=== PATIENT | female | born 1990 | race Caucasian/White ===

== ENCOUNTER 2017-01-13 16:28 | Emergency (ER) | payer BC ==
--- NOTE | 2017-01-13 16:35 | Emergency Department Record ---
History of Present Illness - General Source: Patient Mode of Arrival: Ambulatory Limitations: No limitations - History of Present Illness Initial Comments: pt states she was watching tv when she developed nausea and thought she might have to go to the bathroom. she then states she somehow ended up on the floor and she is unsure if passed out or not. she then had palpitations and chest pain which have eased up now <Miguelina Rogers Jere - Last Filed: 01/13/17 18:01> <Pantera Barbour - Last Filed: 01/13/17 19:27> - General Chief Complaint: Chest Pain Stated Complaint: CHEST PAIN Time Seen by Provider: 01/13/17 16:35 - Related Data Previous Rx's Medication Instructions Recorded Lorazepam [Ativan] 1 mg PO Q12HR #6 tablet 09/29/16 Allergies Allergy/AdvReac Type Severity Reaction Status Date / Time No Known Drug Allergies Allergy Verified 01/13/17 16:36 Review of Systems Reviewed: No additional complaints except as noted below Constitutional: Reports: As per HPI. Denies: Chills, Fever, Malaise, Night sweats, Weakness, Weight change Eyes: Reports: As per HPI. Denies: Eye discharge, Eye pain, Photophobia, Vision change ENT: Reports: As per HPI. Denies: Congestion, Dental pain, Ear pain, Epistaxis , Hearing loss, Throat pain Respiratory: Reports: As per HPI. Denies: Cough, Dyspnea, Hemoptysis, Stridor, Wheezes Cardiovascular: Reports: As per HPI. Denies: Arrhythmia, Chest pain, Dyspnea on exertion, Edema, Murmurs, Orthopnea, Palpitations, Paroxysmal nocturnal dyspnea, Rheumatic Fever, Syncope Endocrine: Reports: As per HPI. Denies: Fatigue, Heat or cold intolerance, Polydipsia, Polyuria Gastrointestinal: Reports: As per HPI. Denies: Abdominal pain, Constipation, Diarrhea, Hematemesis, Hematochezia, Melena, Nausea, Vomiting Genitourinary: Reports: As per HPI. Denies: Abnormal menses, Discharge, Dyspareunia, Dysuria, Frequency, Hematuria, Incontinence, Retention, Urgency Musculoskeletal: Reports: As per HPI. Denies: Arthralgia, Back pain, Gout, Joint swelling, Myalgia, Neck pain Skin: Reports: As per HPI. Denies: Bruising, Change in color, Change in hair/ nails, Lesions, Pruritus, Rash Neurological: Reports: As per HPI. Denies: Abnormal gait, Confusion, Headache, Numbness, Paresthesias, Seizure, Tingling, Tremors, Vertigo, Weakness Psychiatric: Reports: As per HPI. Denies: Anxiety, Auditory hallucinations, Depression, Homicidal thoughts, Suicidal thoughts, Visual hallucinations Hematological/Lymphatic: Reports: As per HPI. Denies: Anemia, Blood Clots, Easy bleeding, Easy bruising, Swollen glands <KenMiguelina L - Last Filed: 01/13/17 18:01> Past Medical History - SOCIAL HISTORY Smoking Status: Never smoker Drug Use: None - RESPIRATORY Hx Respiratory Disorders: No - CARDIOVASCULAR Hx Cardio Disorders: No - NEURO Hx Neuro Disorders: No - GI Hx GI Disorders: No - Hx Genitourinary Disorders: No - ENDOCRINE Hx Endocrine Disorders: No - MUSCULOSKELETAL Hx Musculoskeletal Disorders: No - PSYCH Hx Psych Problems: Yes Hx Anxiety: Yes - HEMATOLOGY/ONCOLOGY Hx Hematology/Oncology Disorders: No <Miguelina Rogers - Last Filed: 01/13/17 18:01> Physical Exam - General General Appearance: Alert, Oriented x3, Cooperative, Mild distress - Head Head exam: Normal inspection - Eye Eye exam: Normal appearance, PERRL, EOMI Pupils: Normal accommodation - ENT ENT exam: Normal exam, Mucous membranes moist, Normal external ear exam, Normal orophraynx, TM's normal bilaterally Ear exam: Normal external inspection. negative: External canal tenderness Nasal Exam: Normal inspection. negative: Discharge, Sinus tenderness Mouth exam: Normal external inspection, Tongue normal Teeth exam: Normal inspection. negative: Dental caries Throat exam: Normal inspection. negative: Tonsillar erythema, Tonsillar exudate - Neck Neck exam: Normal inspection, Full ROM. negative: Tenderness - Respiratory Respiratory exam: Normal lung sounds bilaterally. negative: Respiratory distress - Cardiovascular Cardiovascular Exam: Normal rhythm, Normal heart sounds, Tachycardia - GI/Abdominal GI/Abdominal exam: Soft, Normal bowel sounds. negative: Tenderness - Rectal Rectal exam: Deferred - exam: Deferred - Extremities Extremities exam: Normal inspection, Full ROM, Normal capillary refill. negative: Tenderness - Back Back exam: Reports: Normal inspection, Full ROM. 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 ] Respiratory 22 16 Rate Blood Pressure 112/68 Blood Pressure 124/75 [Left Arm] Pulse Ox 100 100 <Pantera Barbour - Last Filed: 01/13/17 19:27> Medical Decision Making - Lab Data Result diagrams: 01/13/17 16:40 01/13/17 16:40 <Miguelina Rogers - Last Filed: 01/13/17 18:01> - Lab Data Result diagrams: 01/13/17 16:40 01/13/17 16:40 Lab Results 01/13/17 01/13/17 01/13/17 Range/Units 16:40 16:40 16:40 WBC 8.7 (4.2-12.2) K/uL RBC 4.77 (3.80-5.40) M/uL Hgb 13.1 (11.6-16.0) gm/dl Hct 40.3 (35.0-47.0) % MCV 84.5 (81-97) fl MCH 27.5 (27-33) pg MCHC 32.5 (32-36) g/dl RDW 13.1 (11.5-14.5) % Plt Count 297 (130-400) K/uL MPV 11.3 H (7.4-10.4) fl Gran % 47.2 (47-80) % Lymphocytes % 41.1 (16-45) % Monocytes % 7.7 (0-9) % Eosinophils % 3.2 (0-6) % Basophils % 0.8 (0-6) % D-Dimer 0.38 (0-0.59) mg/L FEU Sodium 143 (136-145) mmol/L Potassium 3.3 L (3.5-5.1) mmol/L Chloride 112 H (98-107) mmol/L Carbon Dioxide 21.3 L (22-30) mmol/L Anion Gap 9.7 (7-16) BUN 14 (7-17) mg/dL Creatinine 0.7 (0.52-1.04) mg/dL Estimated GFR > 60 ml/min Random Glucose 92 (70-110) mg/dL Calcium 9.0 (8.5-10.1) mg/dL Creatine Kinase 84 (30-135) U/L CK-MB (CK-2) 0.4 (0-6) ug/L Troponin I < 0.012 (0.00-0.034) ng/mL TSH (0.465-4.68) uIU/ml Urine Color Urine Appearance Urine pH (5.0-8.0) Ur Specific [place] (1.002-1.030) Urine Protein (NEGATIVE) Urine Glucose (UA) (NEGATIVE) Urine Ketones (NEGATIVE) Urine Blood (NEGATIVE) Urine Nitrite (NEGATIVE) Urine Bilirubin (NEGATIVE) Urine Urobilinogen (0.20 - 1.00) E.U./dL Ur Leukocyte Esterase (NEGATIVE) Urine RBC (NONE SEEN) Urine WBC (0-2/hpf) Ur Epithelial Cells (FEW) Urine Bacteria Urine HCG, Qual (NEGATIVE) Urine Opiates Screen Ur Oxycodone Screen Urine Methadone Screen Ur Propoxyphene Screen Ur Barbituates Screen Ur Tricyclics Screen Ur Phencyclidine Scrn Ur Amphetamine Screen U Methamphetamines Scrn U Benzodiazepines Scrn Urine Cocaine Screen Urine Cannabis Screen 01/13/17 01/13/17 01/13/17 Range/Units 16:40 17:33 17:33 WBC (4.2-12.2) K/uL RBC (3.80-5.40) M/uL Hgb (11.6-16.0) gm/dl Hct (35.0-47.0) % MCV (81-97) fl MCH (27-33) pg MCHC (32-36) g/dl RDW (11.5-14.5) % Plt Count (130-400) K/uL MPV (7.4-10.4) fl Gran % (47-80) % Lymphocytes % (16-45) % Monocytes % (0-9) % Eosinophils % (0-6) % Basophils % (0-6) % D-Dimer (0-0.59) mg/L FEU Sodium (136-145) mmol/L Potassium (3.5-5.1) mmol/L Chloride (98-107) mmol/L Carbon Dioxide (22-30) mmol/L Anion Gap (7-16) BUN (7-17) mg/dL Creatinine (0.52-1.04) mg/dL Estimated GFR ml/min Random Glucose (70-110) mg/dL Calcium (8.5-10.1) mg/dL Creatine Kinase (30-135) U/L CK-MB (CK-2) (0-6) ug/L Troponin I (0.00-0.034) ng/mL TSH 1.46 (0.465-4.68) uIU/ml Urine Color Yellow Urine Appearance Clear Urine pH 6.0 (5.0-8.0) Ur Specific [place] 1.015 (1.002-1.030) Urine Protein Negative (NEGATIVE) Urine Glucose (UA) Negative (NEGATIVE) Urine Ketones Negative (NEGATIVE) Urine Blood Trace-i (NEGATIVE) Urine Nitrite Negative (NEGATIVE) Urine Bilirubin Negative (NEGATIVE) Urine Urobilinogen 0.2 (0.20 - 1.00) E.U./dL Ur Leukocyte Esterase Negative (NEGATIVE) Urine RBC 0 - 2 (NONE SEEN) Urine WBC 0 - 2 (0-2/hpf) Ur Epithelial Cells 0 - 2 (FEW) Urine Bacteria Few Urine HCG, Qual Negative (NEGATIVE) Urine Opiates Screen Not detected Ur Oxycodone Screen Not detected Urine Methadone Screen Not detected Ur Propoxyphene Screen Not detected Ur Barbituates Screen Not detected Ur Tricyclics Screen Not detected Ur Phencyclidine Scrn Not detected Ur Amphetamine Screen Not detected U Methamphetamines Scrn Not detected U Benzodiazepines Scrn Not detected Urine Cocaine Screen Not detected Urine Cannabis Screen Not detected <Pantera Barbour - Last Filed: 01/13/17 19:27> Disposition Disposition: Discharge <Miguelina Rogers - Last Filed: 01/13/17 18:01> <Pantera Barbour - Last Filed: 01/13/17 19:27> Clinical Impression: Palpitations Disposition: Home, Self-Care Condition: (1) Good Instructions: Chest Pain (ED), Heart Palpitations (ED) Additional Instructions: follow up with embedded systems developer on sunday. return sooner if worse. Forms: Patient Portal Access
[2017-01-13 17:07] LABS: BASO % 0.8 % (0-6); EOS % 3.2 % (0-6); GRAN % 47.2 % (47-80); HEMATOCRIT 40.3 % (35.0-47.0); HEMOGLOBIN 13.1 gm/dl (11.6-16.0); LYMPH % 41.1 % (16-45); MEAN CELL VOLUME 84.5 fl (81-97); MEAN CORPUSCULAR HEMOGLOBIN 27.5 pg (27-33); MEAN CORPUSCULAR HGB CONC 32.5 g/dl (32-36); MEAN PLATELET VOLUME 11.3 fl (7.4-10.4); MONO % 7.7 % (0-9); PLATELET COUNT 297 K/uL (130-400); RED BLOOD COUNT 4.77 M/uL (3.80-5.40); RED CELL DISTRIBUTION WIDTH 13.1 % (11.5-14.5); WHITE BLOOD COUNT W/O DIFF 8.7 K/uL (4.2-12.2)
[2017-01-13 17:18] LABS: ANION GAP 9.7 (7-16); BLOOD UREA NITROGEN 14 mg/dL (7-17); CARBON DIOXIDE 21.3 mmol/L (22-30); CREATINE PHOSPHOKINASE 84 U/L (30-135); CREATININE 0.7 mg/dL (0.52-1.04); EST GLOMERULAR FILTRATION RATE > 60 ml/min; GLUCOSE,RANDOM 92 mg/dL (70-110)
[2017-01-13 17:30] LABS: CKMB 0.4 ug/L (0-6)
[2017-01-13 17:31] LABS: TROPONIN I < 0.012 ng/mL (0.00-0.034)
[2017-01-13 17:43] LABS: URINE APPEARANCE CLEAR; URINE BILIRUBIN NEGATIVE (NEGATIVE); URINE BLOOD TRACE-I (NEGATIVE); URINE COLOR YELLOW; URINE GLUCOSE (UA) NEGATIVE (NEGATIVE); URINE KETONE NEGATIVE (NEGATIVE); URINE LEUKOCYTE ESTERASE NEGATIVE (NEGATIVE); URINE NITRITE NEGATIVE (NEGATIVE); URINE PROTEIN NEGATIVE (NEGATIVE); URINE UROBILINOGEN 0.2 E.U./dL (0.20 - 1.00)
[2017-01-13 17:45] LABS: HCG,QUALITATIVE URINE NEGATIVE (NEGATIVE)
[2017-01-13 17:47] LABS: AMPHETAMINE SCREEN URINE NOT DETECTED; BARBITURATE SCREEN URINE NOT DETECTED; BENZODIAZEPINE SCREEN URINE NOT DETECTED; COCAINE SCREEN URINE NOT DETECTED; METHADONE SCREEN URINE NOT DETECTED; OPIATE SCREEN URINE NOT DETECTED; PHENCYCLIDINE SCREEN URINE NOT DETECTED; PROPOXYPHENE SCREEN URINE NOT DETECTED; THC SCREEN URINE NOT DETECTED; TRICYCLIC ANTIDEPRESSANT SCRN NOT DETECTED
[2017-01-13 17:48] LABS: METHAMPHETAMINE SCREEN NOT DETECTED; OXYCODONE SCREEN URINE NOT DETECTED
[2017-01-13 17:52] LABS: URINE BACTERIA FEW; URINE EPITHELIAL CELLS 0 - 2 (FEW); URINE RBC 0 - 2 (NONE SEEN); URINE WBC 0 - 2 (0-2/hpf)
[2017-01-13] MEDS ORDERED: PROMETHAZINE HCL 25 MG/ML VIAL IVP ONE (17:53)
[2017-01-13] MEDS ORDERED: LORAZEPAM 0.5 MG TABLET PO ONE (19:26)
--- NOTE | 2017-01-13 19:34 | Emergency Department Record ---
History of Present Illness - General Chief Complaint: Chest Pain Stated Complaint: CHEST PAIN Time Seen by Provider: 01/13/17 16:35 Source: Patient Mode of Arrival: Ambulatory Limitations: No limitations - History of Present Illness Onset/Timin -: Month(s) Pain Radiation: None Consistency: Constant Anginal Symptoms: Nausea Treatments Prior to Arrival: None - Related Data Previous Rx's Medication Instructions Recorded Lorazepam [Ativan] 1 mg PO Q12HR #6 tablet 09/29/16 Allergies Allergy/AdvReac Type Severity Reaction Status Date / Time No Known Drug Allergies Allergy Verified 01/13/17 16:36 Travel Screening - Travel/Exposure Within Last 30 Days Have you traveled within the last 30 days?: No Review of Systems Constitutional: Reports: As per HPI. Denies: Chills, Fever, Malaise, Night sweats, Weakness, Weight change Eyes: Reports: As per HPI. Denies: Eye discharge, Eye pain, Photophobia, Vision change ENT: Reports: As per HPI. Denies: Congestion, Dental pain, Ear pain, Epistaxis , Hearing loss, Throat pain Respiratory: Reports: As per HPI. Denies: Cough, Dyspnea, Hemoptysis, Stridor, Wheezes Cardiovascular: Reports: As per HPI. Denies: Arrhythmia, Chest pain, Dyspnea on exertion, Edema, Murmurs, Orthopnea, Palpitations, Paroxysmal nocturnal dyspnea, Rheumatic Fever, Syncope Endocrine: Reports: As per HPI. Denies: Fatigue, Heat or cold intolerance, Polydipsia, Polyuria Gastrointestinal: Reports: As per HPI. Denies: Abdominal pain, Constipation, Diarrhea, Hematemesis, Hematochezia, Melena, Nausea, Vomiting Genitourinary: Reports: As per HPI. Denies: Abnormal menses, Discharge, Dyspareunia, Dysuria, Frequency, Hematuria, Incontinence, Retention, Urgency Musculoskeletal: Reports: As per HPI. Denies: Arthralgia, Back pain, Gout, Joint swelling, Myalgia, Neck pain Skin: Reports: As per HPI. Denies: Bruising, Change in color, Change in hair/ nails, Lesions, Pruritus, Rash Neurological: Reports: As per HPI. Denies: Abnormal gait, Confusion, Headache, Numbness, Paresthesias, Seizure, Tingling, Tremors, Vertigo, Weakness Psychiatric: Reports: As per HPI. Denies: Anxiety, Auditory hallucinations, Depression, Homicidal thoughts, Suicidal thoughts, Visual hallucinations Hematological/Lymphatic: Reports: As per HPI. Denies: Anemia, Blood Clots, Easy bleeding, Easy bruising, Swollen glands Past Medical History - SOCIAL HISTORY Smoking Status: Never smoker Drug Use: None - RESPIRATORY Hx Respiratory Disorders: No - CARDIOVASCULAR Hx Cardio Disorders: No - NEURO Hx Neuro Disorders: No - GI Hx GI Disorders: No - Hx Genitourinary Disorders: No - ENDOCRINE Hx Endocrine Disorders: No - MUSCULOSKELETAL Hx Musculoskeletal Disorders: No - PSYCH Hx Psych Problems: Yes Hx Anxiety: Yes - HEMATOLOGY/ONCOLOGY Hx Hematology/Oncology Disorders: No Family Medical History Any Significant Family History?: Yes Family Hx Comment (NOT TO BE USED IN PLACE OF ITEMS BELOW): Mother- heart valve problems Physical Exam - General Limitations: No limitations Course Vital Signs 01/13/17 01/13/17 16:30 17:54 Temperature 98.4 F Pulse Rate 104 H Pulse Rate [ 98 H Steel Buffer ] Respiratory 22 16 Rate Blood Pressure 112/68 Blood Pressure 124/75 [Left Arm] Pulse Ox 100 100 - Reevaluation(s) Reevaluation #1: I was called to see the patient due to the patient and family being unhappy with their care. She is very frustrated about not receiving a dx of why this continues to happen to her. I did explain to her that her evaluation up to this point was normal. After reviewing the chart I did offer to admit the patient to the hospital overnight for further monitoring. I also discussed the case with Laura ([employer] WORK [employer]CT INSTALLER) and she agreed to the admission. After doing those things the patient refused the admission. I explained to her that by NOT staying in the hospital she could go home and have a possible arrythmia, syncope, suffer significant trauma due to fall, become disabled and could even . The patient understands the risks and accepts the risks. She presently has proper decision making capacity and was instructed to see her PCP next week and to return to the ER for any problems. 01/13/17 19:31 Medical Decision Making - Data Complexity MDM Data: X-Ray Ordered and/or Reviewed - Lab Data Result diagrams: 01/13/17 16:40 01/13/17 16:40 Lab Results 01/13/17 01/13/17 01/13/17 Range/Units 16:40 16:40 16:40 WBC 8.7 (4.2-12.2) K/uL RBC 4.77 (3.80-5.40) M/uL Hgb 13.1 (11.6-16.0) gm/dl Hct 40.3 (35.0-47.0) % MCV 84.5 (81-97) fl MCH 27.5 (27-33) pg MCHC 32.5 (32-36) g/dl RDW 13.1 (11.5-14.5) % Plt Count 297 (130-400) K/uL MPV 11.3 H (7.4-10.4) fl Gran % 47.2 (47-80) % Lymphocytes % 41.1 (16-45) % Monocytes % 7.7 (0-9) % Eosinophils % 3.2 (0-6) % Basophils % 0.8 (0-6) % D-Dimer 0.38 (0-0.59) mg/L FEU Sodium 143 (136-145) mmol/L Potassium 3.3 L (3.5-5.1) mmol/L Chloride 112 H (98-107) mmol/L Carbon Dioxide 21.3 L (22-30) mmol/L Anion Gap 9.7 (7-16) BUN 14 (7-17) mg/dL Creatinine 0.7 (0.52-1.04) mg/dL Estimated GFR > 60 ml/min Random Glucose 92 (70-110) mg/dL Calcium 9.0 (8.5-10.1) mg/dL Creatine Kinase 84 (30-135) U/L CK-MB (CK-2) 0.4 (0-6) ug/L Troponin I < 0.012 (0.00-0.034) ng/mL TSH (0.465-4.68) uIU/ml Urine Color Urine Appearance Urine pH (5.0-8.0) Ur Specific [place] (1.002-1.030) Urine Protein (NEGATIVE) Urine Glucose (UA) (NEGATIVE) Urine Ketones (NEGATIVE) Urine Blood (NEGATIVE) Urine Nitrite (NEGATIVE) Urine Bilirubin (NEGATIVE) Urine Urobilinogen (0.20 - 1.00) E.U./dL Ur Leukocyte Esterase (NEGATIVE) Urine RBC (NONE SEEN) Urine WBC (0-2/hpf) Ur Epithelial Cells (FEW) Urine Bacteria Urine HCG, Qual (NEGATIVE) Urine Opiates Screen Ur Oxycodone Screen Urine Methadone Screen Ur Propoxyphene Screen Ur Barbituates Screen Ur Tricyclics Screen Ur Phencyclidine Scrn Ur Amphetamine Screen U Methamphetamines Scrn U Benzodiazepines Scrn Urine Cocaine Screen Urine Cannabis Screen 01/13/17 01/13/17 01/13/17 Range/Units 16:40 17:33 17:33 WBC (4.2-12.2) K/uL RBC (3.80-5.40) M/uL Hgb (11.6-16.0) gm/dl Hct (35.0-47.0) % MCV (81-97) fl MCH (27-33) pg MCHC (32-36) g/dl RDW (11.5-14.5) % Plt Count (130-400) K/uL MPV (7.4-10.4) fl Gran % (47-80) % Lymphocytes % (16-45) % Monocytes % (0-9) % Eosinophils % (0-6) % Basophils % (0-6) % D-Dimer (0-0.59) mg/L FEU Sodium (136-145) mmol/L Potassium (3.5-5.1) mmol/L Chloride (98-107) mmol/L Carbon Dioxide (22-30) mmol/L Anion Gap (7-16) BUN (7-17) mg/dL Creatinine (0.52-1.04) mg/dL Estimated GFR ml/min Random Glucose (70-110) mg/dL Calcium (8.5-10.1) mg/dL Creatine Kinase (30-135) U/L CK-MB (CK-2) (0-6) ug/L Troponin I (0.00-0.034) ng/mL TSH 1.46 (0.465-4.68) uIU/ml Urine Color Yellow Urine Appearance Clear Urine pH 6.0 (5.0-8.0) Ur Specific [place] 1.015 (1.002-1.030) Urine Protein Negative (NEGATIVE) Urine Glucose (UA) Negative (NEGATIVE) Urine Ketones Negative (NEGATIVE) Urine Blood Trace-i (NEGATIVE) Urine Nitrite Negative (NEGATIVE) Urine Bilirubin Negative (NEGATIVE) Urine Urobilinogen 0.2 (0.20 - 1.00) E.U./dL Ur Leukocyte Esterase Negative (NEGATIVE) Urine RBC 0 - 2 (NONE SEEN) Urine WBC 0 - 2 (0-2/hpf) Ur Epithelial Cells 0 - 2 (FEW) Urine Bacteria Few Urine HCG, Qual Negative (NEGATIVE) Urine Opiates Screen Not detected Ur Oxycodone Screen Not detected Urine Methadone Screen Not detected Ur Propoxyphene Screen Not detected Ur Barbituates Screen Not detected Ur Tricyclics Screen Not detected Ur Phencyclidine Scrn Not detected Ur Amphetamine Screen Not detected U Methamphetamines Scrn Not detected U Benzodiazepines Scrn Not detected Urine Cocaine Screen Not detected Urine Cannabis Screen Not detected - Radiology Data Radiology results: Report reviewed (CXR: Neg.) Disposition Clinical Impression: Palpitations Disposition: Home, Self-Care Condition: (1) Good Instructions: Chest Pain (ED), Heart Palpitations (ED) Additional Instructions: follow up with managed care provider on sunday. return sooner if worse. Forms: Patient Portal Access
--- NOTE | 2017-01-14 11:24 | RADIOLOGY REPORT ---
EXAM: CHEST 2 VIEWS HISTORY: DIFFICULTY IN BREATHING. TECHNIQUE: Frontal and lateral views of the chest were performed. FINDINGS: Heart size is normal. Lung almaguer are clear. Osseous structures are normal. IMPRESSION: NEGATIVE CHEST EXAMINATION. JOB NUMBER: [id number] MTDD
== END 2017-01-13 19:42 | disposition home or self-care (01) ==
LOC: ER 16:28
DX: R00.2 Palpitations (principal); R11.0 Nausea; R06.00 Dyspnea, unspecified
CPT/HCPCS: 71020; 80048; 80305; 81001; 81025; 82550; 82553; 84443; 84484; 85025; 85379; 93005; 93010; 96374; 99284; J2550

== ENCOUNTER 2017-03-30 13:24 | Emergency (ER) | payer BC ==
[2017-03-30] MEDS ORDERED: OXYMETAZOLINE HCL 15 ML BTL NASAL ONE (13:45)
[2017-03-30] MEDS ORDERED: TOPICAL LIDOCAINE W/ EPI 5 ML TOP ONE (13:46)
--- NOTE | 2017-03-30 13:52 | Emergency Department Record ---
History of Present Illness - General Chief complaint: Nosebleed/epistaxis Stated complaint: NOSE BLEED Time Seen by Provider: 03/30/17 13:38 Source: Patient Mode of Arrival: Ambulatory Limitations: No limitations - History of Present Illness Initial comments: The patient is here with a nosebleed for the last 8 hours. It is bleeding out of the R nares. She has a long hx of nosebleeds but this episode is worse. MD complaint: Epistaxis Onset/Timin -: Minutes(s) Improves with: Pressure Context-Epistaxis: History of similar - Related Data Previous Rx's Medication Instructions Recorded Cephalexin [Keflex] 500 mg PO QID #28 cap 03/30/17 Allergies Allergy/AdvReac Type Severity Reaction Status Date / Time No Known Drug Allergies Allergy Unverified 02/05/17 13:31 Travel Screening - Travel/Exposure Within Last 30 Days Have you traveled within the last 30 days?: No - Travel/Exposure Within Last Year Have you traveled outside the [place] in the last year?: No - Additonal Travel Details Have you been exposed to anyone with a communicable illness?: No Past Medical History - SOCIAL HISTORY Smoking Status: Never smoker Alcohol Use: Rare Drug Use: None - RESPIRATORY Hx Respiratory Disorders: No - CARDIOVASCULAR Hx Cardio Disorders: Yes Hx Abnormal EKG: Yes Comment:: mitral valve prolapse - NEURO Hx Neuro Disorders: Yes - GI Hx GI Disorders: No - Hx Genitourinary Disorders: No - ENDOCRINE Hx Endocrine Disorders: No - MUSCULOSKELETAL Hx Musculoskeletal Disorders: No - PSYCH Hx Psych Problems: Yes Hx Anxiety: Yes Comment:: PTSD - HEMATOLOGY/ONCOLOGY Hx Hematology/Oncology Disorders: Yes Hx Anemia: Yes Comment:: nose bleeds Family Medical History Any Significant Family History?: No Family Hx Comment (NOT TO BE USED IN PLACE OF ITEMS BELOW): Mother- heart valve problems Physical Exam - General General Appearance: Alert, Oriented x3, Cooperative, No acute distress - Head Head exam: Atraumatic, Normocephalic, Normal inspection - Eye Eye exam: Normal appearance, PERRL - ENT Nasal Exam: Active bleeding (No specific site is found.). negative: Normal inspection Throat exam: Normal inspection. negative: Tonsillar erythema, Tonsillar exudate - Neck Neck exam: Normal inspection, Full ROM. negative: Tenderness Course Vital Signs 03/30/17 13:25 Temperature 98.1 F Pulse Rate 102 H Respiratory 16 Rate Blood Pressure 122/76 Pulse Ox 100 - Reevaluation(s) Reevaluation #1: Procedure note: The R nares was prepped with Afrin and TLE. No definite bleeding source was identified. The medial R nasal wall was cauterized with silver nitrate with minimal results. Due to that fact a Rapid Rhino balloon pack was placed. Three cc's of air was placed in the ballon with good resolution of the bleeding. 03/30/17 14:10 Reevaluation #2: The patient was observed for 45 minutes with no further bleeding. She will see her PCP on Sunday for removal. 03/30/17 14:31 Disposition Disposition: Discharge Clinical Impression: Epistaxis Disposition: Home, Self-Care Condition: (1) Good Instructions: Nosebleed (ED) Additional Instructions: No Aspirin or Motrin for pain. Take the Keflex as directed. Please see your PCP on Sunday as planned and have the balloon removed. Return to the ER for any problems or worsening bleeding. Prescriptions: Cephalexin [Keflex] 500 mg PO QID #28 cap Forms: Patient Portal Access Time of Disposition: 14:33 Quality - Quality Measures Quality Measures: N/A - Blood Pressure Screening View Details: Yes Does Patient Have Any of the Following: No Blood Pressure Classification: Pre-Hypertensive BP Reading Systolic Measurement: 122 Diastolic Measurement: 76 Screening for High Blood Pressure: < Pre-Hypertensive BP, F/U Documented > [ G8950] Pre-Hypertensive Follow-up Interventions: Referral to alternative/primary care provider.
== END 2017-03-30 14:37 | disposition home or self-care (01) ==
LOC: ER 13:24
DX: R04.0 Epistaxis (principal)
CPT/HCPCS: 30901; 99283

== ENCOUNTER 2019-01-08 16:04 | Emergency (ER) | payer BC ==
--- NOTE | 2019-01-08 16:23 | Emergency Department Record ---
History of Present Illness - General Chief complaint: Extremity Problem Stated complaint: rt elbow injury/skating Time Seen by Provider: 01/08/19 16:19 Source: Patient, RN notes reviewed Mode of Arrival: Ambulatory - History of Present Illness Initial comments: fall rollerskating at [employer] with right elbow and right wrist pain. offerred her pain medication and she wants to wait. Neurovascular is intact. No other injuries. Onset/Timin -: Hour(s) Location: Right, Arm, Elbow, Forearm History of Same: No Severity scale (1-10): 8 Quality: Sharp Consistency: Constant, Getting worse Improves with: Nothing Worsens with: Exertion, Palpation - Related Data Previous Rx's Medication Instructions Recorded Hydrocodone/APAP 5/325Mg [[place] 1 each PO Q4H #15 tab 01/08/19 5Mg/325Mg] Allergies Allergy/AdvReac Type Severity Reaction Status Date / Time No Known Drug Allergies Allergy Verified 01/08/19 16:06 Travel Screening - Travel/Exposure Within Last 30 Days Have you traveled within the last 30 days?: No - Travel/Exposure Within Last Year Have you traveled outside the [place] in the last year?: No - Additonal Travel Details Have you been exposed to anyone with a communicable illness?: No - Travel Symptoms Symptom Screening: None Review of Systems Reviewed: No additional complaints except as noted below Constitutional: Reports: As per HPI. Denies: Chills, Fever, Malaise, Night sweats, Weakness, Weight change Eyes: Reports: As per HPI. Denies: Eye discharge, Eye pain, Photophobia, Vision change ENT: Reports: As per HPI. Denies: Congestion, Dental pain, Ear pain, Epistaxis, Hearing loss, Throat pain Respiratory: Reports: As per HPI. Denies: Cough, Dyspnea, Hemoptysis, Stridor, Wheezes Cardiovascular: Reports: As per HPI. Denies: Arrhythmia, Chest pain, Dyspnea on exertion, Edema, Murmurs, Orthopnea, Palpitations, Paroxysmal nocturnal dyspnea, Rheumatic Fever, Syncope Endocrine: Reports: As per HPI. Denies: Fatigue, Heat or cold intolerance, Polydipsia, Polyuria Gastrointestinal: Reports: As per HPI. Denies: Abdominal pain, Constipation, Diarrhea, Hematemesis, Hematochezia, Melena, Nausea, Vomiting Genitourinary: Reports: As per HPI. Denies: Abnormal menses, Discharge, Dyspareunia, Dysuria, Frequency, Hematuria, Incontinence, Retention, Urgency Musculoskeletal: Reports: As per HPI, Other (right elbow and wrist pain). Denies: Arthralgia, Back pain, Gout, Joint swelling, Myalgia, Neck pain Skin: Reports: As per HPI. Denies: Bruising, Change in color, Change in hair/nails, Lesions, Pruritus, Rash Neurological: Reports: As per HPI. Denies: Abnormal gait, Confusion, Headache, Numbness, Paresthesias, Seizure, Tingling, Tremors, Vertigo, Weakness Psychiatric: Reports: As per HPI. Denies: Anxiety, Auditory hallucinations, Depression, Homicidal thoughts, Suicidal thoughts, Visual hallucinations Hematological/Lymphatic: Reports: As per HPI. Denies: Anemia, Blood Clots, Easy bleeding, Easy bruising, Swollen glands Past Medical History - SOCIAL HISTORY Smoking Status: Never smoker Alcohol Use: None Drug Use: None - RESPIRATORY Hx Respiratory Disorders: No - CARDIOVASCULAR Hx Cardio Disorders: Yes Hx Abnormal EKG: Yes Comment:: mitral valve prolapse - NEURO Hx Neuro Disorders: Yes - GI Hx GI Disorders: No - Hx Genitourinary Disorders: No - ENDOCRINE Hx Endocrine Disorders: No - MUSCULOSKELETAL Hx Musculoskeletal Disorders: No - PSYCH Hx Psych Problems: Yes Hx Anxiety: Yes Comment:: PTSD - HEMATOLOGY/ONCOLOGY Hx Hematology/Oncology Disorders: Yes Hx Anemia: Yes Comment:: nose bleeds Family Medical History Any Significant Family History?: Yes Family Hx Comment (NOT TO BE USED IN PLACE OF ITEMS BELOW): Mother- heart valve problems Physical Exam - General General Appearance: Alert, Oriented x3, Cooperative, No acute distress - Head Head exam: Normal inspection - Eye Eye exam: Normal appearance, PERRL Pupils: Normal accommodation - ENT ENT exam: Normal exam, Mucous membranes moist, Normal external ear exam, Normal orophraynx, TM's normal bilaterally Ear exam: Normal external inspection. negative: External canal tenderness Nasal Exam: Normal inspection. negative: Discharge, Sinus tenderness Mouth exam: Normal external inspection, Tongue normal Teeth exam: Normal inspection. negative: Dental caries Throat exam: Normal inspection. negative: Tonsillar erythema, Tonsillar exudate - Neck Neck exam: Normal inspection, Full ROM. negative: Tenderness - Respiratory Respiratory exam: Normal lung sounds bilaterally. negative: Respiratory distress - Cardiovascular Cardiovascular Exam: Regular rate, Normal rhythm, Normal heart sounds - GI/Abdominal GI/Abdominal exam: Soft, Normal bowel sounds. negative: Tenderness - Rectal Rectal exam: Deferred - exam: Deferred - Extremities Extremities exam: Normal inspection, Full ROM, Normal capillary refill, Tenderness (right elbow swollen right wrist painful) - Back Back exam: Reports: Normal inspection, Full ROM. Denies: Muscle spasm, Rash noted, Tenderness - Neurological Neurological exam: Alert, Normal gait, Oriented X3, Reflexes normal - Psychiatric Psychiatric exam: Normal affect, Normal mood - Skin Skin exam: Dry, Intact, Normal color, Warm Course Vital Signs 01/08/19 16:09 Temperature 98 F Pulse Rate 99 H Respiratory 20 Rate Blood Pressure 121/85 Pulse Ox 100 Medical Decision Making - Data Complexity MDM Data: X-Ray Ordered and/or Reviewed (radial neck fracture, wrist is negative) Disposition Clinical Impression: Radial head fracture, closed Qualifiers: Encounter type: initial encounter Fracture alignment: nondisplaced Laterality: right Qualified Code(s): S52.124A - Nondisplaced fracture of head of right radius, initial encounter for closed fracture Wrist sprain Qualifiers: Encounter type: initial encounter Laterality: right Qualified Code(s): S63.501A - Unspecified sprain of right wrist, initial encounter Disposition: Home, Self-Care Condition: (1) Good Instructions: Elbow Fracture (ED) Additional Instructions: ibuprofen(motrin) 3 pills three times a day leave splint till seeing Dr Cha Prescriptions: Hydrocodone/APAP 5/325Mg [[place] 5Mg/325Mg] 1 each PO Q4H #15 tab Forms: Patient Portal Access Time of Disposition: 17:33 Quality - Quality Measures Quality Measures: N/A - Blood Pressure Screening Does Patient Have Any of the Following: No Blood Pressure Classification: Pre-Hypertensive BP Reading Systolic Measurement: 121 Diastolic Measurement: 85 Screening for High Blood Pressure: < Pre-Hypertensive BP, F/U Documented > [G8950] Pre-Hypertensive Follow-up Interventions: Referral to alternative/primary care provider.
--- NOTE | 2019-01-10 10:06 | RADIOLOGY REPORT ---
EXAM: RIGHT ELBOW, THREE VIEWS HISTORY: PAIN AFTER FALL. TECHNIQUE: Three views of the right elbow were obtained. Comparison: None. FINDINGS: There is an impacted fracture at the radial neck. No displacement is identified at the articular surface. No other fracture or dislocation is seen. There is a joint hemarthrosis. IMPRESSION: IMPACTED RIGHT RADIAL NECK FRACTURE. JOB NUMBER: [id number] MTDD
--- NOTE | 2019-01-10 10:08 | RADIOLOGY REPORT ---
EXAM: RIGHT WRIST, THREE VIEWS HISTORY: PAIN AFTER FALL. TECHNIQUE: Three views of the right wrist were obtained. Comparison: None. FINDINGS: No bone or joint abnormality is identified. IMPRESSION: NO EVIDENCE FOR FRACTURE OR DISLOCATION. JOB NUMBER: [id number] MTDD
== END 2019-01-08 17:50 | disposition home or self-care (01) ==
LOC: ER 16:04
DX: S52.124A Nondisplaced fracture of head of right radius, initial encounter for closed fracture (principal); S63.501A Unspecified sprain of right wrist, initial encounter; W01.10XA Fall on same level from slipping, tripping and stumbling with subsequent striking against unspecified object, initial encounter; Y92.331 Roller skating rink as the place of occurrence of the external cause; Y93.51 Activity, roller skating (inline) and skateboarding
CPT/HCPCS: 99283; 99284

== ENCOUNTER 2019-01-20 00:44 | Emergency (ER) | payer BC ==
[2019-01-20] MEDS ORDERED: 0.9 % SODIUM CHLORIDE 1,000 ML BAG IV ONE (00:48)
[2019-01-20] MEDS ORDERED: MORPHINE SULFATE 10MG/1ML **1ML VIAL IVP ONE (00:52)
[2019-01-20] MEDS ORDERED: KETOROLAC 30 MG/ML VIAL IVP ONE (00:52)
--- NOTE | 2019-01-20 00:54 | Emergency Department Record ---
History of Present Illness - General Chief Complaint: Abdominal Pain Stated Complaint: BAD PAINS IN STOMACH, STARTED 20 MINS AGO Time Seen by Provider: 01/20/19 00:47 Source: Patient, Family Mode of Arrival: Ambulatory Limitations: No limitations - History of Present Illness Initial Comments: 28 yo female presents with sudden onset of sharp right sided pain with pain in the RLQ and back. The pain can be felt somewhat suprapubic as well. No history of the same pain in the past. She was in bed at the onset. No known renal stones or ovarian cysts. No hematuria. No recent illness. MD Complaint: Abdominal pain -: Minutes(s) (30) Location: RLQ Radiation: R flank, RLQ Migration to: RLQ Severity: Severe Quality: Sharp Consistency: Constant Improves With: Nothing Worsens With: Movement Associated Symptoms: Denies other symptoms - Related Data Previous Rx's Medication Instructions Recorded Ondansetron [Zofran Odt] 4 mg PO Q8H #15 tab.rapdis 01/20/19 Allergies Allergy/AdvReac Type Severity Reaction Status Date / Time No Known Drug Allergies Allergy Verified 01/08/19 16:06 Review of Systems Constitutional: Denies: Chills, Fever, Malaise, Weakness Eyes: Denies: Eye discharge ENT: Denies: Congestion, Throat pain Respiratory: Denies: Cough, Dyspnea Cardiovascular: Denies: Chest pain, Syncope Endocrine: Denies: Fatigue, Polydipsia, Polyuria Gastrointestinal: Reports: Abdominal pain. Denies: Diarrhea, Vomiting Genitourinary: Denies: Dysuria, Urgency Musculoskeletal: Reports: Back pain. Denies: Arthralgia, Joint swelling, Myalgia, Neck pain Skin: Denies: Bruising, Change in color, Rash Neurological: Denies: Headache Psychiatric: Denies: Anxiety Hematological/Lymphatic: Denies: Easy bleeding, Easy bruising Past Medical History - SOCIAL HISTORY Smoking Status: Never smoker Drug Use: None - RESPIRATORY Hx Respiratory Disorders: No - CARDIOVASCULAR Hx Cardio Disorders: Yes Hx Abnormal EKG: Yes Comment:: mitral valve prolapse - NEURO Hx Neuro Disorders: Yes - GI Hx GI Disorders: No - Hx Genitourinary Disorders: No - ENDOCRINE Hx Endocrine Disorders: No - MUSCULOSKELETAL Hx Musculoskeletal Disorders: No - PSYCH Hx Psych Problems: Yes Hx Anxiety: Yes Comment:: PTSD - HEMATOLOGY/ONCOLOGY Hx Hematology/Oncology Disorders: Yes Hx Anemia: Yes Comment:: nose bleeds Family Medical History Family Hx Comment (NOT TO BE USED IN PLACE OF ITEMS BELOW): Mother- heart valve problems Physical Exam - General General Appearance: Alert, Oriented x3, Cooperative, No acute distress Limitations: No limitations - Head Head exam: Atraumatic, Normal inspection - Eye Eye exam: Normal appearance. negative: Conjunctival injection, Scleral icterus - ENT ENT exam: Normal exam Ear exam: Normal external inspection Nasal Exam: Normal inspection Mouth exam: Normal external inspection - Neck Neck exam: Normal inspection - Respiratory Respiratory exam: Normal lung sounds bilaterally. negative: Respiratory distress - Cardiovascular Cardiovascular Exam: Regular rate, Normal rhythm, Normal heart sounds - GI/Abdominal GI/Abdominal exam: Soft, Guarding (tender right lower abdomen), Tenderness. negative: Distended, Hernia - Rectal Rectal exam: Deferred - exam: Adnexal tenderness (R) (mild), Normal bimanual exam, Normal external exam, Normal speculum exam, Other (Mild findings on the pelvic examination without significant pain). negative: Abnormal external exam, Adnexal mass (L), Adnexal mass (R), Adnexal tenderness (L), Cervical discharge, cervical motion tenderness, Vaginal bleeding, Vaginal discharge, Vaginal erythema - Extremities Extremities exam: Normal inspection - Back Back exam: Reports: CVA tenderness (R). Denies: CVA tenderness (L), Tenderness - Neurological Neurological exam: Alert, Oriented X3 - Psychiatric Psychiatric exam: Normal affect, Normal mood. negative: Agitated, Anxious - Skin Skin exam: Dry, Intact, Normal color, Warm Course - Reevaluation(s) Reevaluation #1: The labs results were reviewed There are no acute significant abnormalities of the CBC There are no acute significant abnormalities of the CMP The HCG is negative 01/20/19 01:27 Lipase is normal 01/20/19 01:27 01/20/19 01:46 The patient states her pain has greatly improved and is mild at this time. She declined the need for additional pain medication. 01/20/19 01:[address] report demonstrates R sided HUN to the R UVJ. 2mm dependent urinary bladder stone. CW recently passed 2mm right sided ureteral stone. Small right OC likely functional This is clinically consistent with her greatly improved pain. 01/20/19 02:00 We discussed the results of the tests and questions were answered. The patient is doing well and is comfortable with DC. We discussed at length reasons to immediately return to the ED as well as close follow up. The patient will call the PCP for close follow up of this ED visit to review this visit and the tests performed 01/20/19 02:22 The UA is negative for infection. RBC's noted consistent with renal colic 01/20/19 02:24 Wet Prep is negative Medical Decision Making - Lab Data Result diagrams: 01/20/19 01:00 01/20/19 01:00 Disposition Disposition: Discharge Clinical Impression: Renal colic on right side Disposition: Home, Self-Care Condition: (1) Good Instructions: Renal Colic (ED) Additional Instructions: Review this ER visit and the tests performed with your family doctor Return to the ER for a recheck if worse, any new concerns or questions Strain your urine to look for the passed stone Prescriptions: Ondansetron [Zofran Odt] 4 mg PO Q8H #15 tab.rapdis Forms: Patient Portal Access Time of Disposition: 02:24 Quality - Quality Measures Quality Measures: N/A - Blood Pressure Screening Does Patient Have Any of the Following: No Blood Pressure Classification: Hypertensive Reading Systolic Measurement: 130 Diastolic Measurement: 93 Screening for High Blood Pressure: < Pre-Hypertensive BP, F/U Documented > [G8950] Pre-Hypertensive Follow-up Interventions: Referral to alternative/primary care provider.
[2019-01-20 01:07] LABS: ABSOLUTE NEUTROPHIL COUNT 3.33; BASO % 0.9 % (0-6); EOS % 3.7 % (0-6); GRAN % 36.8 % (47-80); HEMATOCRIT 41.6 % (35.0-47.0); HEMOGLOBIN 13.8 gm/dl (11.6-16.0); LYMPH % 49.3 % (16-45); MEAN CELL VOLUME 82.9 fl (81-97); MEAN CORPUSCULAR HEMOGLOBIN 27.5 pg (27-33); MEAN CORPUSCULAR HGB CONC 33.2 g/dl (32-36); MEAN PLATELET VOLUME 11.1 fl (7.4-10.4); MONO % 9.3 % (0-9); PLATELET COUNT 346 K/uL (130-400); RED BLOOD COUNT 5.02 M/uL (3.80-5.40); RED CELL DISTRIBUTION WIDTH 13.4 % (11.5-14.5)
[2019-01-20 01:16] LABS: BLOOD UREA NITROGEN 14 mg/dL (6-20); CREATININE 0.8 mg/dL (0.5-0.9); EST GLOMERULAR FILTRATION RATE > 60 mL/min
[2019-01-20 01:17] LABS: LIPASE 29 U/L (13-60); TOTAL PROTEIN 7.2 g/dL (6.6-8.7)
[2019-01-20 01:19] LABS: GLUCOSE,RANDOM 122 mg/dL (74-109)
[2019-01-20 01:21] LABS: ALT/SGPT 19 U/L (<33)
[2019-01-20 01:22] LABS: ALB/GLOB RATIO 1.6 (1.1-1.8); ALBUMIN 4.4 g/dL (4.0-5.0); ALKALINE PHOSPHATASE 62 U/L (35-104); AST/SGOT 22 U/L (10.0-35.0)
[2019-01-20 01:55] LABS: URINE APPEARANCE CLEAR; URINE BILIRUBIN NEGATIVE (NEGATIVE); URINE BLOOD LARGE (NEGATIVE); URINE COLOR YELLOW; URINE GLUCOSE (UA) NEGATIVE (NEGATIVE); URINE KETONE NEGATIVE (NEGATIVE); URINE LEUKOCYTE ESTERASE NEGATIVE (NEGATIVE); URINE NITRITE NEGATIVE (NEGATIVE); URINE PROTEIN NEGATIVE (NEGATIVE); URINE UROBILINOGEN 0.2 E.U./dL (0.20 - 1.00)
[2019-01-20] MEDS ORDERED: ONDANSETRON 4 MG ODT TABLET SL ONE (02:02)
[2019-01-20 02:20] LABS: URINE EPITHELIAL CELLS 0 - 2 (FEW); URINE RBC 16 - 25 (NONE SEEN); URINE WBC 0 - 2 (0-2/hpf)
[2019-01-20 02:21] LABS: URINE MUCUS LIGHT
--- NOTE | 2019-01-21 06:56 | CT SCAN REPORT ---
DATE: 01/20/2019 at 1:20 a.m. EXAM: CT OF THE ABDOMEN AND PELVIS WITHOUT CONTRAST. HISTORY: RIGHT LOWER QUADRANT ABDOMINAL PAIN RADIATING TO THE BACK. TECHNIQUE: Standard CT imaging of the abdomen and pelvis was performed without contrast. COMPARISON: None. FINDINGS: The lung bases are clear. The liver, gallbladder, biliary tree, pancreas, spleen, and adrenal glands are normal. There is mild right hydroureteral nephrosis. There is a 2.0 mm calculus dependently within the bladder lumen. The appearance is consistent with a recently passed stone. A 1.0-mm, nonobstructing stone is present within the left kidney. There is no left hydronephrosis. The aorta is normal in caliber. There is no retroperitoneal lymphadenopathy. The large and small bowel loops, including the appendix, are normal. There is no pneumoperitoneum or ascites. The uterus and adnexa appear within normal limits. Small functional follicles are present within the right ovary. A 2.0- mm calculus is present within the bladder lumen. The bladder is otherwise unremarkable. There is a tiny fat-containing umbilical hernia. There are no acute osseous abnormalities. IMPRESSION: 1. FINDINGS CONSISTENT WITH A RECENTLY PASSED 2.0 MM RIGHT URETERAL CALCULUS WHICH NOW LIES DEPENDENTLY IN THE URINARY BLADDER. THERE IS MINOR RESIDUAL RIGHT HYDRONEPHROSIS. 2. THE REMAINING PORTIONS OF THE ABDOMEN AND PELVIS ARE NORMAL. Job Number: [id number] [facility]
[2019-01-21 09:03] LABS: GC SPECIMEN TYPE Vaginal
== END 2019-01-20 02:31 | disposition home or self-care (01) ==
LOC: ER 00:44
DX: N13.2 Hydronephrosis with renal and ureteral calculous obstruction (principal)
CPT/HCPCS: 99284 ×2; 96374; 96375; 83690; 85025; 80053; 81001; 84703; 74176; Q0111; J1885; J2270; 87210; J7030